=== PATIENT | female | born 1985 | race Caucasian/White ===

== ENCOUNTER → 2019-02-07 | Outpatient (CLI) | payer BC ==
--- NOTE | 2019-02-08 07:14 | US ---
EXAMINATION TYPE: US axilla LT DATE OF EXAM: 02/07/2019 COMPARISON: NONE CLINICAL HISTORY: R59.0 LOCALIZED ENLARGED LYMPH NODE. Patient feels palpable area in left axilla x 1 year. Patient claims it changes in size and moves. R/O solitary mass, likely lymph node. *Scanned left axilla area of palpable. Hypoechoic lesion with a fatty hilum containing internal vascu larity visualized measurin.4 x 1.0 x 0.6 cm. This has a typical appearance of a nonenlarged lymph node with cortex measuring 2.5 mm. Scanned right axilla for comparison. No abnormalities seen at thi s time. IMPRESSION: Solitary morphologically normal-appearing nonenlarged lymph node in the right axilla. If there is any interval clinical growth repeat ultrasound could be considered.
== END | disposition home or self-care (01) ==
LOC: RADUSWWP 16:48
DX: L04.2 Acute lymphadenitis of upper limb (principal)